=== PATIENT | male | born 1985 | race Two or more races ===

== ENCOUNTER 2023-04-09 20:06 | Inpatient (IN) | payer MEDICAID ==
[~2023-04-09] VITALS: Ht 193 cm; Wt 81.4 kg
[2023-04-09] MEDS ORDERED: QUEtiapine FUMARATE 100 MG TABLET PO PRN (23:15)
[2023-04-09] MEDS ORDERED: ZOLPIDEM TARTRATE 10 MG TABLET PO PRN (23:15)
[2023-04-09 23:40] VITALS: BP 125/87
[2023-04-10] MEDS ORDERED: MAGNESIUM HYDROXIDE SUSPENSION 30 ML UDCUP PO PRN (07:30)
[2023-04-10] MEDS ORDERED: CloNIDine HCL 0.1 MG TABLET PO PRN (07:30)
[2023-04-10] MEDS ORDERED: DOCUSATE SODIUM 100 MG CAPSULE PO PRN (07:30)
[2023-04-10] MEDS ORDERED: ACETAMINOPHEN 325 MG TABLET PO PRN (07:30)
[2023-04-10] MEDS ORDERED: ALBUTEROL SULFATE HFA 90 MCG/PUFF 8 GM INHALER IH PRN (07:30)
[2023-04-10] MEDS ORDERED: GuaiFENesin/D-METHORPHAN [SUGAR-FREE] 200-20MG/10 ML SYRUP UDCUP PO PRN (07:30)
[2023-04-10] MEDS ORDERED: LOPERAMIDE HCL 2 MG CAPSULE PO PRN (07:30)
[2023-04-10] MEDS ORDERED: IBUPROFEN 400 MG TABLET PO PRN (07:30)
[2023-04-10] MEDS ORDERED: ONDANSETRON HCL 4 MG TABLET PO PRN (07:30)
[2023-04-10] MEDS ORDERED: MAG HYDROX/AL HYDROX/SIMETH ES 30 ML SUSPENSION UDCUP PO PRN (07:30)
[2023-04-10] MEDS ORDERED: PETROLATUM,WHITE 28 GM JELLY TP PRN (07:30)
[2023-04-10] MEDS ORDERED: NICOTINE 14 MG/24 HOUR PATCH TD PRN (07:30)
[2023-04-10] MEDS: BuPROPion HCL XL 150 MG ER TABLET PO SCH (13:17)
[2023-04-10 16:26] VITALS: BP 117/80
[2023-04-10] MEDS: LURASIDONE HCL 40 MG TABLET PO SCH (16:57)
[2023-04-11 03:07] VITALS: BP 121/76
[2023-04-11 08:01] VITALS: BP 122/70
[2023-04-11] MEDS: BuPROPion HCL XL 150 MG ER TABLET PO SCH (08:02)
[2023-04-11 16:16] VITALS: BP 113/70
[2023-04-11] MEDS: LURASIDONE HCL 40 MG TABLET PO SCH (16:52)
[2023-04-12] MEDS: BuPROPion HCL XL 150 MG ER TABLET PO SCH (08:16)
[2023-04-12 08:35] VITALS: BP 117/74
[2023-04-12] MEDS: LORazepam 2 MG TABLET PO PRN (15:54)
[2023-04-12] MEDS: LURASIDONE HCL 40 MG TABLET PO SCH (16:41)
[2023-04-12 20:29] VITALS: BP 121/73
[2023-04-13 08:11] VITALS: BP 124/61
[2023-04-13] MEDS: BuPROPion HCL XL 150 MG ER TABLET PO SCH (08:34)
[2023-04-13 16:07] VITALS: BP 119/67
[2023-04-13] MEDS: LORazepam 2 MG TABLET PO PRN (16:10)
[2023-04-13] MEDS: LURASIDONE HCL 40 MG TABLET PO SCH (17:05)
[2023-04-13 20:14] VITALS: BP 113/70
[2023-04-14 04:06] LABS: HEPATITIS C AB (EIA) Non Reactive (Non Reactive)
[2023-04-14 08:11] VITALS: BP 106/68
[2023-04-14] MEDS: BuPROPion HCL XL 150 MG ER TABLET PO SCH (08:21)
[2023-04-14] MEDS ORDERED: BUPR-49 PO (12:37)
[2023-04-14] MEDS ORDERED: LURA40TA4 PO (12:37)
== END 2023-04-14 14:15 | disposition home or self-care (01) | DRG 750 ==
LOC: B2S 23:04
PROVIDERS: ADMIT Psychiatry & Neurology Psychiatry; ATTEND Psychiatry & Neurology Psychiatry
DX: F25.0 Schizoaffective disorder, bipolar type (principal); R45.851 Suicidal ideations; F15.10 Other stimulant abuse, uncomplicated; F41.9 Anxiety disorder, unspecified; G47.00 Insomnia, unspecified; G89.29 Other chronic pain; K59.00 Constipation, unspecified; Z59.00 Homelessness unspecified
CPT/HCPCS: 86803; 87340

== ENCOUNTER 2023-11-04 13:32 | Inpatient (IN) | payer MEDICAID ==
[~2023-11-04] VITALS: Ht 193 cm; Wt 85.0 kg
[~2023-11-04 13:32] MED LIST: BUPR-49 PO; LURA40TA4 PO
[2023-11-04] MEDS ORDERED: INFLUENZA VIRUS VACCINE QVS 2023-24 (6MO+)/PF 60 MCG/0.5 ML SYRINGE IM. ONE (14:45)
[2023-11-04 15:04] VITALS: BP 126/72; PULSE 70; RESP 17; TEMP 98; O2SAT 98
[2023-11-04] MEDS ORDERED: PETROLATUM,WHITE 28 GM JELLY TP PRN (17:15)
[2023-11-04] MEDS ORDERED: MAGNESIUM HYDROXIDE SUSPENSION 30 ML UDCUP PO PRN (17:15)
[2023-11-04] MEDS ORDERED: MAG HYDROX/ALUMINUM HYD/SIMETH ES 30 ML SUSPENSION UDCUP PO PRN (17:15)
[2023-11-04] MEDS ORDERED: DOCUSATE SODIUM 100 MG CAPSULE PO PRN (17:15)
[2023-11-04] MEDS ORDERED: ALBUTEROL SULFATE HFA 90 MCG/PUFF 8 GM INHALER IH PRN (17:15)
[2023-11-04] MEDS ORDERED: GuaiFENesin/D-METHORPHAN [SUGAR-FREE] 200-20MG/10 ML SYRUP UDCUP PO PRN (17:15)
[2023-11-04] MEDS ORDERED: NICOTINE 14 MG/24 HOUR PATCH TD PRN (17:15)
[2023-11-04] MEDS ORDERED: LOPERAMIDE HCL 2 MG CAPSULE PO PRN (17:15)
[2023-11-04] MEDS ORDERED: ONDANSETRON HCL 4 MG TABLET PO PRN (17:15)
[2023-11-04] MEDS ORDERED: CloNIDine HCL 0.1 MG TABLET PO PRN (17:15)
[2023-11-04] MEDS: BACITRACIN 28 GM OINTMENT TP SCH (18:36)
[2023-11-04 21:10] VITALS: BP 120/75; PULSE 76; RESP 17; TEMP 98; O2SAT 98
[2023-11-05 08:47] VITALS: BP 149/79; PULSE 99; RESP 18; TEMP 97.9; O2SAT 96
[2023-11-05] MEDS: BACITRACIN 28 GM OINTMENT TP SCH ×2 (08:49→17:18)
[2023-11-05] MEDS: BICTEGRAV/EMTRICIT/TENOFOV ALA 50-200-25 MG TABLET PO SCH (08:49)
[2023-11-05] MEDS: BuPROPion HCL XL 150 MG ER TABLET PO SCH (12:28)
[2023-11-05] MEDS: LORazepam 2 MG TABLET PO PRN ×2 (12:54→23:34)
[2023-11-05] MEDS: LURASIDONE HCL 40 MG TABLET PO SCH (17:18)
[2023-11-05 20:00] VITALS: BP 125/73; PULSE 87; RESP 18; TEMP 97.7; O2SAT 97
[2023-11-05] MEDS: ZOLPIDEM TARTRATE 10 MG TABLET PO PRN (23:34)
[2023-11-06 08:23] VITALS: BP 130/73; PULSE 83; RESP 18; TEMP 96.9; O2SAT 100
[2023-11-06 08:24] LABS: BASOPHILS % (AUTO) 0.8 % (0.0-2.0); EOSINOPHILS % (AUTO) 4.3 % (1.0-6.0); HEMATOCRIT 40.3 % (41-53); HEMOGLOBIN 13.3 g/dL (13.5-17.5); LYMPHOCYTES # (AUTO) 1.9 K/uL (1.0-4.8); LYMPHOCYTES % (AUTO) 26.2 % (22.0-44.0); MEAN CORPUSCULAR HEMOGLOBIN 29.4 pg (26.0-34.0); MEAN CORPUSCULAR HGB CONC 33.1 G/dL (31.0-37.0); MEAN CORPUSCULAR VOLUME 89 fL (80-100); MONOCYTES # (AUTO) 0.5 K/uL (0.1-1.0); MONOCYTES % (AUTO) 6.9 % (2.0-9.0); NEUTROPHILS # (AUTO) 4.6 K/uL (1.8-7.7); NEUTROPHILS % (AUTO) 61.8 % (40.0-70.0); PLATELET COUNT (AUTO) 344 K/uL (150-450); RED BLOOD CELL COUNT(AUTO) 4.54 MIL/uL (4.50-5.90); WHITE BLOOD COUNT (AUTO) 7.4 K/uL (4.5-11.0)
[2023-11-06] MEDS: BuPROPion HCL XL 150 MG ER TABLET PO SCH (08:38)
[2023-11-06] MEDS: BICTEGRAV/EMTRICIT/TENOFOV ALA 50-200-25 MG TABLET PO SCH (08:38)
[2023-11-06] MEDS: BACITRACIN 28 GM OINTMENT TP SCH ×2 (08:38→16:21)
[2023-11-06 08:44] LABS: APPEARANCE,URINE CLEAR (CLEAR); BILIRUBIN,URINE NEGATIVE (NEGATIVE); COLOR,URINE YELLOW (YELLOW); GLUCOSE, URINE (UA) NEGATIVE (NEGATIVE); KETONES,URINE NEGATIVE (NEGATIVE); LEUKOCYTE ESTERASE ,URINE NEGATIVE (NEGATIVE); NITRATE,URINE NEGATIVE (NEGATIVE); OCCULT BLOOD,URINE NEGATIVE (NEGATIVE); PROTEIN,URINE NEGATIVE (NEGATIVE); SPECIFIC GRAVITIY, URINE 1.027 (1.003-1.030); UROBILINOGEN,URINE <=1.0 mg/dL (<=1.0)
[2023-11-06 08:50] LABS: ALCOHOL, URINE DRUG SCREEN NEGATIVE (NEGATIVE); AMPHET/METH SCREEN,URINE NEGATIVE (NEGATIVE); BARBITURATE SCREEN, URINE NEGATIVE (NEGATIVE); BENZODIAZEPINES SCREEN,URINE NEGATIVE (NEGATIVE); CANNABINOID SCREEN,URINE NEGATIVE (NEGATIVE); COCAINE SCREEN,URINE NEGATIVE (NEGATIVE); METHADONE SCREEN, URINE NEGATIVE (NEGATIVE); OPIATE SCREEN,URINE NEGATIVE (NEGATIVE); PHENCYCLIDINE SCREEN,URINE NEGATIVE (NEGATIVE)
[2023-11-06 08:59] LABS: ALANINE AMINOTRANSFERASE 17 U/L (12-78); ALBUMIN 3.7 g/dL (3.4-5.0); ALKALINE PHOSPHATASE 99 U/L (46-116); ANION GAP 8 mmol/L (8-16); ASPARTATE AMINOTRANSFERASE 20 U/L (15-37); BILIRUBIN,TOTAL 0.4 mg/dL (0.1-1.0); CALCIUM, TOTAL 8.9 mg/dL (8.8-10.5); CARBON DIOXIDE 27 mmol/L (22-29); CHLORIDE 102 mmol/L (98-107); CREATININE 0.84 mg/dL (0.60-1.30); FREE T4 (FREE THYROXINE) 0.77 ng/dL (0.76-1.46); GLOMERULAR FILTR. RATE CALC > 60 mL/min (>60); GLUCOSE,RANDOM 152 mg/dL (70-110); POTASSIUM 3.9 mmol/L (3.5-5.1); SODIUM SERUM 137 mmol/L (136-145); THYROID STIMULATING HORMONE 1.91 uIU/mL (0.36-3.74); TOTAL PROTEIN, SERUM 7.9 g/dL (6.4-8.2); UREA NITROGEN, BLOOD 12 mg/dL (7-18)
[2023-11-06] MEDS: LORazepam 2 MG TABLET PO PRN (13:08)
[2023-11-06] MEDS: LURASIDONE HCL 40 MG TABLET PO SCH (16:17)
[2023-11-06 20:29] VITALS: BP 136/79; PULSE 79; RESP 16; TEMP 98; O2SAT 97
[2023-11-07 08:25] LABS: CHOL/HDL RATIO 3.8 (4.2-7.3)
[2023-11-07] MEDS: BuPROPion HCL XL 150 MG ER TABLET PO SCH (08:30)
[2023-11-07] MEDS: BACITRACIN 28 GM OINTMENT TP SCH ×2 (08:30→16:31)
[2023-11-07] MEDS: BICTEGRAV/EMTRICIT/TENOFOV ALA 50-200-25 MG TABLET PO SCH (08:30)
[2023-11-07] MEDS: LORazepam 2 MG TABLET PO PRN ×2 (08:30→21:42)
[2023-11-07 08:32] VITALS: BP 125/78; PULSE 80; RESP 19; TEMP 97.8; O2SAT 97
[2023-11-07 11:37] VITALS: RESP 18
[2023-11-07] MEDS: IBUPROFEN 400 MG TABLET PO PRN (11:37)
[2023-11-07 12:37] VITALS: RESP 17
[2023-11-07] MEDS: LURASIDONE HCL 40 MG TABLET PO SCH (16:30)
[2023-11-07 20:00] VITALS: BP 120/68; PULSE 73; RESP 16; TEMP 98
[2023-11-07] MEDS: ZOLPIDEM TARTRATE 10 MG TABLET PO PRN (22:59)
[2023-11-08] MEDS: ACETAMINOPHEN 325 MG TABLET PO PRN (08:28)
[2023-11-08] MEDS: BuPROPion HCL XL 150 MG ER TABLET PO SCH (08:28)
[2023-11-08] MEDS: LORazepam 2 MG TABLET PO PRN ×2 (08:28→16:42)
[2023-11-08] MEDS: BACITRACIN 28 GM OINTMENT TP SCH ×2 (08:32→16:40)
[2023-11-08] MEDS: BICTEGRAV/EMTRICIT/TENOFOV ALA 50-200-25 MG TABLET PO SCH (08:32)
[2023-11-08 08:36] VITALS: BP 119/78; PULSE 100; RESP 17; TEMP 97.9; O2SAT 98
[2023-11-08] MEDS: LURASIDONE HCL 40 MG TABLET PO SCH (16:42)
[2023-11-08 20:07] VITALS: BP 108/65; PULSE 82; RESP 17; TEMP 97.5; O2SAT 98
[2023-11-09] MEDS: ZOLPIDEM TARTRATE 10 MG TABLET PO PRN (01:05)
[2023-11-09 09:15] VITALS: BP 110/69; PULSE 80; RESP 17; TEMP 98.2; O2SAT 98
[2023-11-09] MEDS: BACITRACIN 28 GM OINTMENT TP SCH ×2 (09:47→16:55)
[2023-11-09] MEDS: BuPROPion HCL XL 150 MG ER TABLET PO SCH (09:47)
[2023-11-09] MEDS: BICTEGRAV/EMTRICIT/TENOFOV ALA 50-200-25 MG TABLET PO SCH (09:47)
[2023-11-09] MEDS: LORazepam 2 MG TABLET PO PRN (10:04)
[2023-11-09] MEDS: HALOPERIDOL 5 MG TABLET PO PRN (13:50)
[2023-11-09] MEDS: LURASIDONE HCL 40 MG TABLET PO SCH (16:55)
[2023-11-09 20:30] VITALS: BP 114/67; PULSE 77; RESP 16; TEMP 98; O2SAT 97
[2023-11-09 21:51] LABS: GLUCOMETER DEV NAME(LOC) POC.BV; POC SARS-COV2 AG, FIA NEGATIVE (NEGATIVE)
[2023-11-10] MEDS: IBUPROFEN 400 MG TABLET PO PRN ×2 (07:02→15:18)
[2023-11-10 07:03] VITALS: RESP 18
[2023-11-10 08:02] VITALS: BP 118/70; PULSE 86; RESP 16; TEMP 98.4; O2SAT 97
[2023-11-10 08:13] VITALS: BP 118/70; PULSE 86; RESP 16; TEMP 98.4; O2SAT 97
[2023-11-10] MEDS: BACITRACIN 28 GM OINTMENT TP SCH ×2 (09:00→16:44)
[2023-11-10] MEDS: BICTEGRAV/EMTRICIT/TENOFOV ALA 50-200-25 MG TABLET PO SCH (09:36)
[2023-11-10] MEDS: BuPROPion HCL XL 150 MG ER TABLET PO SCH (09:38)
[2023-11-10] MEDS: LORazepam 2 MG TABLET PO PRN (09:39)
[2023-11-10] MEDS: ACETAMINOPHEN 325 MG TABLET PO PRN (10:35)
[2023-11-10] MEDS: LURASIDONE HCL 40 MG TABLET PO SCH (16:44)
[2023-11-10 21:08] VITALS: BP 126/89; PULSE 109; RESP 19; TEMP 97.6; O2SAT 96
[2023-11-10] MEDS: ZOLPIDEM TARTRATE 10 MG TABLET PO PRN (21:32)
[2023-11-11] MEDS: BICTEGRAV/EMTRICIT/TENOFOV ALA 50-200-25 MG TABLET PO SCH (08:29)
[2023-11-11] MEDS: BuPROPion HCL XL 150 MG ER TABLET PO SCH (08:29)
[2023-11-11] MEDS: BACITRACIN 28 GM OINTMENT TP SCH ×2 (08:30→16:52)
[2023-11-11 08:41] VITALS: BP 118/62; PULSE 74; RESP 17; TEMP 97.9; O2SAT 97
[2023-11-11] MEDS: LORazepam 2 MG TABLET PO PRN (12:34)
[2023-11-11 12:35] VITALS: RESP 17
[2023-11-11] MEDS: IBUPROFEN 400 MG TABLET PO PRN (12:35)
[2023-11-11 13:35] VITALS: RESP 16
[2023-11-11] MEDS: LURASIDONE HCL 40 MG TABLET PO SCH (16:52)
[2023-11-11 20:08] VITALS: BP 109/67; PULSE 78; RESP 17; TEMP 97.8; O2SAT 97
[2023-11-11] MEDS: ZOLPIDEM TARTRATE 10 MG TABLET PO PRN (23:11)
[2023-11-12 08:25] VITALS: BP 105/64; PULSE 88; RESP 18; TEMP 97.8; O2SAT 98
[2023-11-12] MEDS: BuPROPion HCL XL 150 MG ER TABLET PO SCH (08:26)
[2023-11-12] MEDS: BICTEGRAV/EMTRICIT/TENOFOV ALA 50-200-25 MG TABLET PO SCH (08:26)
[2023-11-12] MEDS: BACITRACIN 28 GM OINTMENT TP SCH ×2 (08:27→16:44)
[2023-11-12 08:39] VITALS: RESP 17
[2023-11-12] MEDS: IBUPROFEN 400 MG TABLET PO PRN (08:39)
[2023-11-12 09:39] VITALS: RESP 16
[2023-11-12] MEDS: LORazepam 2 MG TABLET PO PRN (12:14)
[2023-11-12] MEDS: LURASIDONE HCL 40 MG TABLET PO SCH (16:44)
[2023-11-12 23:02] VITALS: BP 134/72; PULSE 80; RESP 17; TEMP 98.3; O2SAT 98
[2023-11-12] MEDS: ZOLPIDEM TARTRATE 10 MG TABLET PO PRN (23:16)
[2023-11-13] MEDS: BuPROPion HCL XL 150 MG ER TABLET PO SCH (08:27)
[2023-11-13] MEDS: BACITRACIN 28 GM OINTMENT TP SCH ×2 (08:27→16:53)
[2023-11-13] MEDS: BICTEGRAV/EMTRICIT/TENOFOV ALA 50-200-25 MG TABLET PO SCH (08:27)
[2023-11-13 08:35] VITALS: BP 102/73; PULSE 100; RESP 17; TEMP 98.6; O2SAT 97
[2023-11-13] MEDS: LORazepam 2 MG TABLET PO PRN (11:07)
[2023-11-13] MEDS: LURASIDONE HCL 40 MG TABLET PO SCH (16:53)
[2023-11-13] MEDS: ZOLPIDEM TARTRATE 10 MG TABLET PO PRN (20:52)
[2023-11-13 21:44] VITALS: BP_SYST 111; PULSE 72; RESP 17; TEMP 97.4; O2SAT 96
[2023-11-14 08:55] VITALS: BP 139/70; PULSE 100; RESP 17; TEMP 98; O2SAT 98
[2023-11-14] MEDS: BICTEGRAV/EMTRICIT/TENOFOV ALA 50-200-25 MG TABLET PO SCH (09:15)
[2023-11-14] MEDS: BuPROPion HCL XL 150 MG ER TABLET PO SCH (09:15)
[2023-11-14] MEDS: BACITRACIN 28 GM OINTMENT TP SCH ×2 (09:16→16:45)
[2023-11-14 09:24] VITALS: RESP 17; O2SAT 98
[2023-11-14] MEDS: IBUPROFEN 400 MG TABLET PO PRN ×2 (09:24→20:05)
[2023-11-14 10:24] VITALS: RESP 17
[2023-11-14] MEDS: HALOPERIDOL 5 MG TABLET PO PRN (12:56)
[2023-11-14] MEDS: LURASIDONE HCL 40 MG TABLET PO SCH (16:45)
[2023-11-14] MEDS: LORazepam 2 MG TABLET PO PRN (19:37)
[2023-11-14 20:03] VITALS: BP 121/69; PULSE 80; RESP 18; TEMP 97.2; O2SAT 98
[2023-11-14] MEDS: ZOLPIDEM TARTRATE 10 MG TABLET PO PRN (20:50)
[2023-11-14 21:05] VITALS: RESP 18
[2023-11-15 08:33] VITALS: BP 108/61; PULSE 84; RESP 18; TEMP 97.7; O2SAT 97
[2023-11-15] MEDS: BICTEGRAV/EMTRICIT/TENOFOV ALA 50-200-25 MG TABLET PO SCH (09:25)
[2023-11-15] MEDS: BuPROPion HCL XL 150 MG ER TABLET PO SCH (09:26)
[2023-11-15] MEDS: BACITRACIN 28 GM OINTMENT TP SCH ×2 (09:26→17:09)
[2023-11-15] MEDS: LURASIDONE HCL 40 MG TABLET PO SCH (17:09)
[2023-11-15 20:10] VITALS: BP 111/62; PULSE 76; RESP 18; TEMP 98.4; O2SAT 96
[2023-11-15] MEDS: ZOLPIDEM TARTRATE 10 MG TABLET PO PRN (22:13)
[2023-11-16] MEDS: BICTEGRAV/EMTRICIT/TENOFOV ALA 50-200-25 MG TABLET PO SCH (08:19)
[2023-11-16] MEDS: BuPROPion HCL XL 150 MG ER TABLET PO SCH (08:19)
[2023-11-16] MEDS: BACITRACIN 28 GM OINTMENT TP SCH (08:20)
[2023-11-16 08:57] VITALS: BP 106/56; PULSE 77; RESP 18; TEMP 97.5; O2SAT 97
[2023-11-16] MEDS ORDERED: LURA40TA4 PO (10:32)
[2023-11-16] MEDS ORDERED: BICT1TAB PO (10:32)
[2023-11-16] MEDS ORDERED: BUPR-49 PO (10:32)
== END 2023-11-16 12:05 | disposition home or self-care (01) | DRG 750 ==
LOC: B2S 14:21
PROVIDERS: ADMIT Psychiatry & Neurology Psychiatry; ATTEND Psychiatry & Neurology Psychiatry
PROC: GZHZZZZ Group Psychotherapy (ICD-10-PCS; principal; 2023-11-05)
DX: F25.1 Schizoaffective disorder, depressive type (principal); R45.851 Suicidal ideations; F41.9 Anxiety disorder, unspecified; R73.9 Hyperglycemia, unspecified; R03.0 Elevated blood-pressure reading, without diagnosis of hypertension; T40.412A Poisoning by fentanyl or fentanyl analogs, intentional self-harm, initial encounter; G47.00 Insomnia, unspecified; Z20.822 Contact with and (suspected) exposure to COVID-19; Z79.899 Other long term (current) drug therapy; Z59.00 Homelessness unspecified; Z91.09 Other allergy status, other than to drugs and biological substances; Y92.89 Other specified places as the place of occurrence of the external cause
CPT/HCPCS: 80053; 80061; 80307; 81003; 83036; 84439; 84443; 85025; Q9967